=== PATIENT | female | born 1970 | race African-American/Black ===

== ENCOUNTER 2017-03-25 11:11 | Emergency (ER) | payer MEDICAID ==
--- NOTE | 2017-03-25 11:37 | ER Document Report ---
ED Medical Screen (RME) - General Chief Complaint: Upper Abdominal Pain Stated Complaint: ABDOMINAL PAIN, RECTAL BLEEDING Time Seen by Provider: 03/25/17 11:35 Notes: Patient says that she has been having pain in her upper abdomen for the past 2 weeks. It has been a daily occurrence and is there almost constantly. She has also had some bleeding with her bowel movements for the past 2 weeks, as well. She has a history of hemorrhoids and thought that what is causing her bleeding. She says there is some swelling there at this time, but no pain present. Has not had any vomiting LMP 03/06. TRAVEL OUTSIDE OF THE [place] IN LAST 30 DAYS: No - Related Data Allergies/Adverse Reactions: No Known Allergies Allergy (Verified 03/25/17 11:14) Past Medical History Pulmonary Medical History: Reports: Hx Asthma Renal/ Medical History: Denies: Hx Peritoneal Dialysis Past Surgical History: Reports: Hx Orthopedic Surgery - foot Physical Exam - Vital signs Vitals: Temp Pulse Resp BP Pulse Ox 98.2 F 83 18 170/91 H 100 03/25/17 11:15 03/25/17 11:15 03/25/17 11:15 03/25/17 11:15 03/25/17 11:15 Course - Vital Signs Vital signs: Temp Pulse Resp BP Pulse Ox 98.2 F 83 18 170/91 H 100 03/25/17 11:15 03/25/17 11:15 03/25/17 11:15 03/25/17 11:15 03/25/17 11:15
[2017-03-25 12:27] LABS: HEMATOCRIT 28.3 % (36.0-47.0); HEMOGLOBIN 8.7 g/dL (12.0-15.5); HGB HCT DIFFERENCE -2.2; MEAN CORPUSCULAR HEMOGLOBIN 19.7 pg (27.0-33.4); MEAN CORPUSCULAR HGB CONC 30.8 g/dL (32.0-36.0); RED BLOOD COUNT 4.43 10^6/uL (3.72-5.28); RED CELL DISTRIBUTION WIDTH 18.6 % (11.5-14.0); WHITE BLOOD COUNT 3.1 10^3/uL (4.0-10.5)
[2017-03-25 12:42] LABS: ALANINE AMINOTRANSFERASE 33 U/L (9-52); ALBUMIN 4.3 g/dL (3.5-5.0); ALKALINE PHOSPHATASE 62 U/L (38-126); ANION GAP 10 (5-19); ASPARTATE AMINO TRANSFERASE 27 U/L (14-36); BILIRUBIN,DIRECT 0.2 mg/dL (0.0-0.4); BLOOD UREA NITROGEN 11 mg/dL (7-20); CALCIUM 9.6 mg/dL (8.4-10.2); CARBON DIOXIDE 26 mmol/L (22-30); CHLORIDE 107 mmol/L (98-107); CREATININE RESULT 0.65 mg/dL (0.52-1.25); GLUCOSE 99 mg/dL (75-110); LIPASE 98.8 U/L (23-300); POTASSIUM 4.1 mmol/L (3.6-5.0); SODIUM 142.7 mmol/L (137-145); TOTAL PROTEIN 7.1 g/dL (6.3-8.2)
[2017-03-25 12:55] LABS: MEAN CORPUSCULAR VOLUME 64 fl (80-97)
[2017-03-25 13:05] LABS: BASOPHILS % (MANUAL) 0 % (0-2); EOSINOPHILS % (MANUAL) 2 % (0-6); LYMPHOCYTES % (MANUAL) 44 % (13-45); TOTAL CELLS COUNTED 100
[2017-03-25 13:07] LABS: ANISOCYTOSIS 2+; MICROCYTOSIS 3+; OVALOCYTES SLIGHT; POIKILOCYTOSIS SLIGHT; POLYCHROMASIA SLIGHT; TARGET CELLS 1+
[2017-03-25 13:08] LABS: HYPOCHROMASIA 3+; PLATELET CLUMPS PRESENT
--- NOTE | 2017-03-25 13:34 | RADIOLOGY REPORT (SQ) ---
EXAM DESCRIPTION: ACUTE ABDOMEN SERIES COMPLETED DATE/TIME: 03/25/2017 1:23 pm REASON FOR STUDY: abdominal pain, distention COMPARISON: None. NUMBER OF VIEWS: Three views. TECHNIQUE: Frontal chest, supine abdomen and upright/decubitus abdomen radiographic images acquired. LIMITATIONS: None. FINDINGS: CHEST: Lungs clear of infiltrates. FREE AIR: None. No abnormal gas collections. BOWEL GAS PATTERN: Nonobstructive pattern. No dilated loops or air fluid levels. CALCIFICATIONS: No suspicious calcifications. HARDWARE: None in the abdomen. SOFT TISSUES: No gross mass or suggestion of organomegaly. BONES: No acute fracture. No worrisome bone lesions. OTHER: No other significant finding. IMPRESSION: NO RADIOGRAPHIC EVIDENCE FOR ACUTE ABDOMINAL DISEASE. TECHNICAL DOCUMENTATION: JOB ID: [id number] [employer]- All Rights Reserved
--- NOTE | 2017-03-25 14:02 | ER Document Report ---
ED GI/ - General Chief Complaint: Upper Abdominal Pain Stated Complaint: ABDOMINAL PAIN, RECTAL BLEEDING Time Seen by Provider: 03/25/17 11:35 Notes: Patient is a 46 year old female who presents to the ED complaining of abdominal discomfort with associated nausea, heartburn, decreased appetite, bloating, frequent BM's and BRBPR for the past 2 weeks. She states her abdominal pain feels like pressure with minimal cramping located LUQ and epigastric area. This pain is constant, no alleviating factors. States her BM's are formed, occasional dark/tarry but vary in color. She has a history of external hemorrhoids that have not been inflammed or painful. LMP: 03/06/2017 ROS+ easy bruising with minimal trauma PCP: denies FH: history of anemia, unaware of type PMH: hemorrhoids, asthma PSH: Ectopic d&c, unilat salpingoophorectomy unaware of laterality SH: denies tobacco or drug use. Admits to rare etoh use TRAVEL OUTSIDE OF THE [place] IN LAST 30 DAYS: No - Related Data Allergies/Adverse Reactions: No Known Allergies Allergy (Verified 03/25/17 11:14) Past Medical History - Social History Smoking Status: Never Smoker Chew tobacco use (# tins/day): No Frequency of alcohol use: Rare Drug Abuse: None Family History: Reviewed & Not Pertinent Pulmonary Medical History: Reports: Hx Asthma Renal/ Medical History: Denies: Hx Peritoneal Dialysis Past Surgical History: Reports: Hx Orthopedic Surgery - foot Review of Systems - Review of Systems Constitutional: Malaise EENT: No symptoms reported Cardiovascular: No symptoms reported Respiratory: No symptoms reported Gastrointestinal: See HPI Genitourinary: No symptoms reported Female Genitourinary: No symptoms reported Hematologic/Lymphatic: See HPI -: Yes All other systems reviewed and negative Physical Exam - Vital signs Vitals: Temp Pulse Resp BP Pulse Ox 98.2 F 83 18 170/91 H 100 03/25/17 11:15 03/25/17 11:15 03/25/17 11:15 03/25/17 11:15 03/25/17 11:15 - Notes Notes: PHYSICAL EXAM GENERAL: Alert, interacts well. HEAD: Normocephalic, atraumatic. EYES: Pupils equal, round, and reactive to light. Extraocular movements intact. ENT: Oral mucosa moist, tongue midline. NECK: Full range of motion. Supple. Trachea midline. LUNGS: Clear to auscultation bilaterally, no wheezes, rales, or rhonchi. No respiratory distress. HEART: Regular rate and rhythm. No murmurs, gallops, or rubs. capillary refill less then 2 seconds in all UE and LE digits ABDOMEN: Soft, distended, mild tenderness LUQ and epigastric area. No guarding , rebound, or rigidity.. Bowel sounds present in all 4 quadrants. RECTAL: external hemorrhoids noninflammed, nontender, no evidence of thrombosis , nonbleeing. Digital exam without internal hemorrhoids. check labs for stool guiac. No BRB appreciated EXTREMITIES: Moves all 4 extremities spontaneously. No edema, radial and dorsalis pedis pulses 2/4 bilaterally. No cyanosis. NEUROLOGICAL: Alert and oriented x4. Normal speech. PSYCH: Normal affect, normal mood. SKIN: Warm, dry, normal turgor. No rashes or lesions noted. Course - Re-evaluation Re-evalutation: 03/25/17 14:35 Patient is a 46 year old female who is HDS, no acute distress and afebrile. CBC does show concerning signs for microcytic anemia of unknown cause. Hemoglobin of 8.7. No previous labs available to compare to. Discussed with patient indicating further testing such as CT of the chest abdomen and pelvis. Patient states that she needs to pick her children at school and was able to return this evening. Patient signed AMA form. Per [facility] protocol and guidelines, this case was discussed with supervising physician Dr. Beatriz Vela - Vital Signs Vital signs: Temp Pulse Resp BP Pulse Ox 98.1 F 77 18 164/101 H 100 03/25/17 14:05 03/25/17 14:05 03/25/17 11:15 03/25/17 14:05 03/25/17 14:05 - Laboratory Result Diagrams: 03/25/17 11:45 03/25/17 11:45 Laboratory results interpreted by me: 03/25/17 11:45 WBC 3.1 L Hgb 8.7 L Hct 28.3 L MCV 64 L MCH 19.7 L MCHC 30.8 L RDW 18.6 H Abs Neuts (Manual) 1.3 L Discharge - Discharge Clinical Impression: Abdominal pain, Anemia Condition: Stable Disposition: AGAINST MEDICAL ADVICE Additional Instructions: Please return to the emergency department for complete your evaluation when you are available There is concern today that your symptoms are related to an undiagnosed anemia
[2017-03-25 14:10] VITALS: BP 164/101
[2017-03-25 15:35] LABS: PROTHROMBIN TIME 13.6 SEC (11.4-15.4)
[2017-03-26 10:33] LABS: PATH REVIEW PATHOLOGIST REVIEWED
== END 2017-03-25 14:10 | disposition left against medical advice (07) ==
LOC: ER 11:11
DX: R10.10 Upper abdominal pain, unspecified (principal); R63.0 Anorexia; D64.9 Anemia, unspecified; K62.5 Hemorrhage of anus and rectum; R11.0 Nausea; R12 Heartburn
CPT/HCPCS: 36415; 74022; 80053; 82272; 83690; 84703; 85025; 85045; 85610; 99284

== ENCOUNTER 2017-03-25 20:21 | Emergency (ER) | payer SELFPAY ==
[2017-03-25] MEDS ORDERED: PANTOPRAZOLE SODIUM 40 MG VIAL IV ONE (21:12)
[2017-03-25] MEDS ORDERED: NORMAL SALINE 250 ML IV PRN (21:12)
[2017-03-25] MEDS ORDERED: NORMAL SALINE 1000 ML 1,000 ML IV ONE (21:12)
--- NOTE | 2017-03-25 21:59 | ER Document Report ---
ED GI/ - General Chief Complaint: Abdominal Pain Stated Complaint: STOMACH PAIN Time Seen by Provider: 03/25/17 21:02 Mode of Arrival: Ambulatory Information source: Patient Notes: Patient is a 46-year-old female who presents to the ER for the second time today for 6 weeks of rectal bleeding with stools and epigastric pain. Patient states that sometimes her bleeding is bright red with clots, and sometimes it is black in her stool. Patient states that when it is bright red she thinks it is just her hemorrhoids bleeding as she does have a history of this but has never had black/tarry stools before. Patient does have a history of stomach ulcers but is never had one bleed before that she knows of. She has never had an endoscopy. She denies any fever, chills, diarrhea, constipation, nausea or vomiting. She had to leave from the emergency department earlier today to pick her children up from school, but did plan on coming back to finish evaluation. TRAVEL OUTSIDE OF THE [place] IN LAST 30 DAYS: No - Related Data Allergies/Adverse Reactions: No Known Allergies Allergy (Verified 03/25/17 11:14) Past Medical History - General Information source: Patient - Social History Smoking Status: Never Smoker Frequency of alcohol use: Occasional Drug Abuse: None Family History: Reviewed & Not Pertinent Patient has suicidal ideation: No Patient has homicidal ideation: No Pulmonary Medical History: Reports: Hx Asthma, Hx Bronchitis Renal/ Medical History: Denies: Hx Peritoneal Dialysis Past Surgical History: Reports: Hx Gynecologic Surgery - x1 ooph s/p ectopic, Hx Orthopedic Surgery - foot - Immunizations Hx Diphtheria, Pertussis, Tetanus Vaccination: Yes Review of Systems - Review of Systems Constitutional: No symptoms reported EENT: No symptoms reported Cardiovascular: No symptoms reported Respiratory: No symptoms reported Gastrointestinal: No symptoms reported Genitourinary: No symptoms reported Female Genitourinary: No symptoms reported Musculoskeletal: No symptoms reported Skin: No symptoms reported Hematologic/Lymphatic: No symptoms reported Neurological/Psychological: No symptoms reported Physical Exam - Vital signs Vitals: Temp Pulse Resp BP Pulse Ox 98.7 F 76 18 162/84 H 100 03/25/17 20:36 03/25/17 20:36 03/25/17 20:36 03/25/17 20:36 03/25/17 20:36 - Notes Notes: PHYSICAL EXAMINATION: GENERAL: Well-appearing and in no acute distress. HEAD: Atraumatic, normocephalic. EYES: Pupils equal round and reactive to light, extraocular movements intact, sclera anicteric, conjunctiva are normal. NECK: Normal range of motion, supple without lymphadenopathy LUNGS: CTAB and equal. No wheezes rales or rhonchi. HEART: Regular rate and rhythm without murmurs ABDOMEN: Soft, no tenderness. No guarding, no rebound BACK: no vertebral tenderness, normal ROM GI/: no CVA tenderness Rectal: Light brown stool, no obvious bleeding, normal rectal tone, external hemorrhoids noted, no internal hemorrhoids noted EXTREMITIES: Normal range of motion, no pitting edema. No cyanosis. NEUROLOGICAL: Cranial nerves grossly intact. Normal sensory/motor exams. PSYCH: Normal mood, normal affect. SKIN: Warm, Dry, normal turgor, no rashes or lesions noted Course - Re-evaluation Re-evalutation: 03/25/17 21:51 Patient looks very well, is smiling and very sociable, hemoglobin earlier today was 8.7 with a hematocrit of 28, for this reason I ordered a type and screen and 2 units of packed red blood cells if it does sound like patient has rectal bleeding and will likely need transfusion. Hemoccult earlier today was negative , but it is unknown if a good sample was obtained at that time. I spoke with patient and my attending, Dr. Dr. Robbins, GI [facility] [employer] architect agrees she should be admitted for scope tomorrow. advises packed red blood cells. 03/25/17 21:51 03/25/17 21:55 Dr. Wright, hospitalist disagrees with admission. 03/26/17 00:05 I spoke with patient and my attending, Dr. Oliver, who agrees with me that hemoglobin is the same are virtually unchanged from 8.7 earlier today and there is no obvious bleeding on rectal exam, patient can go home and see Dr. Robbins in office tomorrow. Dr. Robbins with called again and agrees with this plan, advises no packed red blood cells his hemoglobin is virtually unchanged from earlier today. Patient is in agreement with this plan and promises to call Dr. Robbins's office first thing in the morning. - Vital Signs Vital signs: Temp Pulse Resp BP Pulse Ox 98.7 F 76 19 155/82 H 99 03/25/17 20:36 03/25/17 20:36 03/25/17 23:57 03/25/17 23:57 03/25/17 23:57 - Laboratory Result Diagrams: 03/25/17 21:57 03/25/17 21:57 Laboratory results interpreted by me: 03/25/17 03/25/17 21:57 21:57 Hgb 8.7 L Hct 28.2 L MCV 63 L MCH 19.5 L MCHC 31.0 L RDW 18.2 H Lymphocytes % 45.6 H Crossmatch See Detail Discharge - Discharge Clinical Impression: Epigastric pain Anemia Qualifiers: Anemia type: unspecified type Qualified Code(s): D64.9 - Anemia, unspecified Condition: Stable Disposition: HOME, SELF-CARE Additional Instructions: Return immediately for any new or worsening symptoms. Follow up with Dr. Robbins, GI doctor, call tomorrow to make followup appointment. Prescriptions: Omeprazole Magnesium [Prilosec Otc] 20 mg PO BID #40 tablet. Sucralfate [Carafate 1 gm Tablet] 1 gm PO ACHS #40 tablet Referrals: GARY ROBBINS MD [ACTIVE STAFF] - Follow up as needed
[2017-03-25 22:18] LABS: ABSOLUTE BASOPHILS # (AUTO) 0.1 10^3/uL (0.0-0.2); ABSOLUTE MONOCYTES (AUTO) 0.4 10^3/uL (0.1-1.4); ABSOLUTE NEUT (AUTO) 1.9 10^3/uL (1.7-8.2); BASOPHILS % (AUTO) 1.7 % (0-2); EOSINOPHILS % (AUTO) 0.7 % (0-6); HEMATOCRIT 28.2 % (36.0-47.0); HEMOGLOBIN 8.7 g/dL (12.0-15.5); HGB HCT DIFFERENCE -2.1; LYMPHOCYTES % (AUTO) 45.6 % (13-45); MEAN CORPUSCULAR HEMOGLOBIN 19.5 pg (27.0-33.4); MEAN CORPUSCULAR VOLUME 63 fl (80-97); MONOCYTES % (AUTO) 9.5 % (3-13); RED BLOOD COUNT 4.48 10^6/uL (3.72-5.28); RED CELL DISTRIBUTION WIDTH 18.2 % (11.5-14.0); SEGMENTED NEUTROPHILS % (AUTO) 42.5 % (42-78); WHITE BLOOD COUNT 4.4 10^3/uL (4.0-10.5)
[2017-03-25 22:28] LABS: ALANINE AMINOTRANSFERASE 36 U/L (9-52); ALBUMIN 4.5 g/dL (3.5-5.0); ALKALINE PHOSPHATASE 68 U/L (38-126); ANION GAP 12 (5-19); ASPARTATE AMINO TRANSFERASE 26 U/L (14-36); BILIRUBIN,DIRECT 0.2 mg/dL (0.0-0.4); BILIRUBIN,TOTAL 1.2 mg/dL (0.2-1.3); BLOOD UREA NITROGEN 12 mg/dL (7-20); CALCIUM 9.8 mg/dL (8.4-10.2); CARBON DIOXIDE 25 mmol/L (22-30); CHLORIDE 105 mmol/L (98-107); CREATININE RESULT 0.67 mg/dL (0.52-1.25); GLUCOSE 84 mg/dL (75-110); POTASSIUM 3.6 mmol/L (3.6-5.0); SODIUM 141.7 mmol/L (137-145); TOTAL PROTEIN 7.5 g/dL (6.3-8.2)
[2017-03-25 22:34] LABS: ANISOCYTOSIS 2+; HYPOCHROMASIA 3+; MICROCYTOSIS 3+; POLYCHROMASIA 1+
[2017-03-25 22:35] LABS: OVALOCYTES SLIGHT; POIKILOCYTOSIS SLIGHT; TARGET CELLS 1+
[2017-03-26] VITALS: BP 155/82
== END 2017-03-26 00:11 | disposition home or self-care (01) ==
LOC: ER 20:21
DX: R10.13 Epigastric pain (principal); D64.9 Anemia, unspecified; R10.9 Unspecified abdominal pain; K62.5 Hemorrhage of anus and rectum
CPT/HCPCS: 99284; 96374; 36415; 85025; 80053; S0164; J7030

== ENCOUNTER 2017-03-26 15:49 | Emergency (ER) | payer SELFPAY ==
[2017-03-26 15:56] VITALS: BP 166/88
[2017-03-26] MEDS ORDERED: METOCLOPRAMIDE HCL 10 MG TABLET PO ONE (16:34)
[2017-03-26] MEDS ORDERED: DIPHENHYDRAMINE HCL 25 MG CAPSULE PO ONE (16:34)
--- NOTE | 2017-03-26 16:37 | ER Document Report ---
ED Medical Screen (RME) - General Chief Complaint: Headache Stated Complaint: HEADACHE Time Seen by Provider: 03/26/17 16:27 Notes: Patient says that she has had a headache for the past few days. It is located in the scientology region bilaterally. She has taken Tylenol with no relief. She has not had any nausea or vomiting, but also has not been eating because of the headache. Says she had a fever last night of 100. Patient had a similar headache and was seen here a couple of months ago and says that they did a CT scan which did not show anything abnormal. I reviewed the patient's records and she was here 16 months ago and had a normal CT scan of her head. TRAVEL OUTSIDE OF THE [place] IN LAST 30 DAYS: No - Related Data Allergies/Adverse Reactions: No Known Allergies Allergy (Verified 03/26/17 16:22) Past Medical History Pulmonary Medical History: Reports: Hx Asthma, Hx Bronchitis Renal/ Medical History: Denies: Hx Peritoneal Dialysis Past Surgical History: Reports: Hx Gynecologic Surgery - x1 ooph s/p ectopic, Hx Orthopedic Surgery - foot - Immunizations Hx Diphtheria, Pertussis, Tetanus Vaccination: Yes Physical Exam - Vital signs Vitals: Temp Pulse Resp BP Pulse Ox 98.4 F 82 16 166/88 H 100 03/26/17 15:55 03/26/17 15:55 03/26/17 15:55 03/26/17 15:55 03/26/17 15:55 Course - Vital Signs Vital signs: Temp Pulse Resp BP Pulse Ox 98.4 F 82 16 166/88 H 100 03/26/17 15:55 03/26/17 15:55 03/26/17 15:55 03/26/17 15:55 03/26/17 15:55
--- NOTE | 2017-03-26 17:27 | ER Document Report ---
ED Headache - General Chief Complaint: Headache Stated Complaint: HEADACHE Time Seen by Provider: 03/26/17 16:27 Notes: Patient says that she has had a headache for the past few days. It is located in the pentecostalism region bilaterally. She has taken Tylenol with no relief. She has not had any nausea or vomiting, but also has not been eating because of the headache. Says she had a fever last night of 100. Does not have a stiff neck or pain with movement of her head and neck. Patient had a similar headache and was seen here a couple of months ago and says that they did a CT scan which did not show anything abnormal. I reviewed the patient's records and she was here 16 months ago and had a normal CT scan of her head. TRAVEL OUTSIDE OF THE [place] IN LAST 30 DAYS: No - Related Data Allergies/Adverse Reactions: No Known Allergies Allergy (Verified 03/26/17 16:22) Past Medical History - Social History Smoking Status: Never Smoker Family History: Reviewed & Not Pertinent Patient has suicidal ideation: No Patient has homicidal ideation: No Pulmonary Medical History: Reports: Hx Asthma, Hx Bronchitis Past Surgical History: Reports: Hx Gynecologic Surgery - x1 ooph s/p ectopic, Hx Orthopedic Surgery - foot - Immunizations Hx Diphtheria, Pertussis, Tetanus Vaccination: Yes Review of Systems - Review of Systems Constitutional: denies: Fever Cardiovascular: denies: Chest pain Respiratory: denies: Cough, Short of breath, Wheezing Gastrointestinal: Poor appetite. denies: Abdominal pain, Diarrhea, Vomiting Genitourinary: No symptoms reported Neurological/Psychological: No symptoms reported. denies: Confusion, Dementia Physical Exam - Vital signs Vitals: Temp Pulse Resp BP Pulse Ox 98.4 F 82 16 166/88 H 100 03/26/17 15:55 03/26/17 15:55 03/26/17 15:55 03/26/17 15:55 03/26/17 15:55 Interpretation: Normal - Notes Notes: PHYSICAL EXAMINATION: GENERAL: Well-appearing, in no acute distress. Vital signs are all normal. Patient looks as if she is in some discomfort, squinting eyes. HEAD: Atraumatic, normocephalic. EYES: Pupils equal round and reactive to light, extraocular movements intact. ENT: oropharynx clear without exudates. Moist mucous membranes. NECK: Normal range of motion, supple. No nuchal rigidity at all. LUNGS: Breath sounds clear and equal bilaterally. HEART: Regular rate and rhythm without murmurs. ABDOMEN: Soft, nontender. No guarding or rebound. BACK: No tenderness throughout entire back. EXTREMITIES: Normal range of motion without pain. NEUROLOGICAL: Normal speech, normal gait. Normal sensory, motor, and reflex exams. Awake, alert, and oriented x3. Cranial nerves normal. PSYCH: Normal mood, normal affect. SKIN: Warm, dry, no rashes. Course - Re-evaluation Re-evalutation: 03/26/17 21:47 Says that she wanted to go home. Ask if I would prescribe some medication for her headache for her to try at home. Does not wish to wait to see the results of the Reglan and Benadryl. Will write her prescription for the Reglan and recommend she get some Benadryl to take at the same time. - Vital Signs Vital signs: Temp Pulse Resp BP Pulse Ox 98.4 F 82 16 166/88 H 100 03/26/17 15:55 03/26/17 15:55 03/26/17 15:55 03/26/17 15:55 03/26/17 15:55 Discharge - Discharge Clinical Impression: Headache Qualifiers: Headache type: unspecified Headache chronicity pattern: acute headache Intractability: intractable Qualified Code(s): R51 - Headache Condition: Stable Disposition: HOME, SELF-CARE Additional Instructions: HEADACHE: The physician does not feel that the headache you are experiencing has a serious underlying cause. Most headaches are due to emotional stress, with resultant muscle tension (tension headache). Occasionally, headaches are secondary to changes in the blood vessels of the scalp (vascular headache and migraine headache). Sometimes, a headache is the first symptom of another developing illness, such as a viral infection. You have no evidence of stroke, bleeding, meningitis, or other serious cause of your headache. The treatment of headaches varies with the severity and cause of the pain. Not all headaches need pain shots. In fact, there is evidence that using narcotics for headaches may make them worse in the long run. The physician will determine the therapy that's in your best interest. If you develop a fever, if the headache is different from any you've previously experienced, or if the headache progressively worsens, then call your physician at once or go to the emergency room. REGLAN (METOCLOPRAMIDE): Reglan has been prescribed. This medicine affects the stomach and intestines. It can be used to treat nausea and vomiting, to prevent reflux of stomach acid up into the esophagus, or to increase the contractions of the stomach and intestines. It is often prescribed for esophagitis, and for paralysis of the stomach in diabetics. Reglan can cause either mild restlessness or drowsiness. You should contact the doctor at once if you become extremely restless, anxious, or cannot sleep, or if you develop uncontrollable motions of the lips, tongue, or jaw. Do not take alcohol with this medicine. Do not drive or operate machinery until you have been taking this medicine long enough to know how it affects you. Call the doctor if you develop abdominal pains, lightheadedness, black stool, or blood in the stool or vomitus. You can buy Benadryl [id number] at any drugstore or grocery store. Take on or 2 pills along with the Reglan up to 4 times a day if needed for your headache. USE OF DIPHENHYDRAMINE: Diphenhydramine (Benadryl) is an antihistamine and has been recommended to help treat your headache and to prevent side effects of other medications used to treat headaches. The medication can be repeated four times daily. Age 25 mg pill adult 1-2 tabs Antihistamines may cause drowsiness, especially with the first dose. Do not operate machinery or drive while under the effects of the medication. Do not combine the medication with alcohol, or with any other medication without talking to your doctor. FOLLOW-UP CARE: If you have been referred to a physician for follow-up care, call the physician s office for an appointment as you were instructed or within the next two days. If you experience worsening or a significant change in your symptoms, notify the physician immediately or return to the Emergency Department at any time for re-evaluation. Prescriptions: Metoclopramide HCl [Reglan 10 mg Tablet] 1 - 2 tab PO QIDP PRN #25 tablet PRN Reason:
== END 2017-03-26 17:47 | disposition home or self-care (01) ==
LOC: ER 15:49
DX: R51 Headache (principal); R63.0 Anorexia; J45.909 Unspecified asthma, uncomplicated
CPT/HCPCS: 99283

== ENCOUNTER 2020-07-30 13:04 | Emergency (ER) | payer MEDICAID ==
[2020-07-30 13:16] VITALS: BP 177/86
--- NOTE | 2020-07-30 13:53 | ER Document Report ---
HPI - HPI Time Seen by Provider: 07/30/20 13:47 Pain Level: 5 Context: Patient is a 49-year-old female who presents emergency department with a chief complaint of left lower lid eye pain. Patient states that 2 days ago she noticed swelling to her left lower eye. States it is painful. Has never had this before. States that she works at [employer]. - CONSTITUTIONAL Constitutional: DENIES: Fever, Chills - EENT EENT: REPORTS: Eye problems - See HPI.. DENIES: Sore Throat, Ear Pain - NEURO Neurology: DENIES: Headache, Weakness, Vision blurred, Dizzinesss / Vertigo - CARDIOVASCULAR Cardiovascular: DENIES: Chest pain - RESPIRATORY Respiratory: DENIES: Trouble Breathing, Coughing - GASTROINTESTINAL Gastrointestinal: DENIES: Abdominal Pain, Black / Bloody Stools - URINARY Urinary: DENIES: Dysuria, Urgency, Frequency - REPRODUCTIVE Reproductive: DENIES: : - MUSCULOSKELETAL Musculoskeletal: DENIES: Extremity pain - DERM Skin Color: Normal Skin Problems: Pustule - right lower eyelid Past Medical History - Social History Smoking Status: Never Smoker Chew tobacco use (# tins/day): No Frequency of alcohol use: None Drug Abuse: None Family History: Reviewed & Not Pertinent Patient has homicidal ideation: No Pulmonary Medical History: Reports: Hx Asthma, Hx Bronchitis Renal/ Medical History: Denies: Hx Peritoneal Dialysis Past Surgical History: Reports: Hx Gynecologic Surgery - x1 ooph s/p ectopic, Hx Orthopedic Surgery - foot - Immunizations Hx Diphtheria, Pertussis, Tetanus Vaccination: Yes Vertical Provider Document - CONSTITUTIONAL Agree With Documented VS: Yes Exam Limitations: No Limitations General Appearance: No Apparent Distress - INFECTION CONTROL TRAVEL OUTSIDE OF THE [place] IN LAST 30 DAYS: No - HEENT HEENT: Atraumatic, Normocephalic, PERRLA. negative: Conjuctival Injection - NECK Neck: Normal Inspection - RESPIRATORY Respiratory: Breath Sounds Normal, No Respiratory Distress - CARDIOVASCULAR Cardiovascular: Regular Rate Pulses: Normal: Radial - MUSCULOSKELETAL/EXTREMETIES Musculoskeletal/Extremeties: FROM - NEURO Level of Consciousness: Awake, Alert, Appropriate Motor/Sensory: No Motor Deficit, No Sensory Deficit - DERM Integumentary: Warm, Dry, No Rash, Abscess - right lower eyelid Course - Re-evaluation Re-evalutation: 07/30/20 13:54 Patient's physical exam is consistent with a stye on her left lower leg. Will place her on Polytrim eyedrops. Instructed her on warm compresses. She is in agreement with this plan. Follow-up precautions were given. Verbal discharge instructions were given to the patient. They verbalized understanding. They are stable for discharge. - Vital Signs Vital signs: Temp Pulse Resp BP Pulse Ox 98.5 F 87 20 177/86 H 98 07/30/20 13:14 07/30/20 13:14 07/30/20 13:14 07/30/20 13:14 07/30/20 13:14 Discharge - Discharge Clinical Impression: Stye Qualifiers: Laterality: left Eyelid: lower Qualified Code(s): H00.015 - Hordeolum externum left lower eyelid Condition: Stable Disposition: HOME, SELF-CARE Instructions: High Blood Pressure ([facility]) Additional Instructions: Stye Your examination reveals that you have a sty. This is an infection of a hair follicle in the eyelid. As the infection progresses, it forms an abscess along the edge of the eyelid. A sty causes a lot of swelling and tenderness. As the body fights the infection, a lump forms. The knot slowly goes away over a couple of weeks. Treatment includes applying warm compresses to the eye for 10 to 15 minutes every two or three hours. Usually, the infection will drain from the abscess spontaneously, however, some sties require surgical drainage. You may be given antibiotic eye drops to prevent the infection from spreading to the surface of the eye. If the doctor is concerned that the infection is severe, you may be given antibiotics by mouth or shot. Call the doctor at once if vision decreases, if swelling becomes severe, or if eye pain becomes severe. See the doctor for follow-up should you fail to improve as expected. Follow-up with an eye doctor for regular care and if the stye does not go away. Prescriptions: Polymyxin B Sulf/Trimethoprim [Polytrim Eye Drops] 1 drop OD QID 7 Days #10 ml Forms: Return to Work Referrals: GRACIELA CRUZ MD [Primary Care Provider] - Follow up in 3-5 days
== END 2020-07-30 13:53 | disposition home or self-care (01) ==
LOC: ER 13:04
DX: H00.015 Hordeolum externum left lower eyelid (principal); H57.12 Ocular pain, left eye
CPT/HCPCS: 99283